=== PATIENT | male | born 1995 | race Caucasian/White ===

== ENCOUNTER 2021-12-11 07:01 | Emergency (ER) | payer OTHER, SELFPAY ==
[2021-12-11 07:07] VITALS: BP 139/91; PULSE 62; RESP 16; TEMP 36.6; O2SAT 99; BMI 21.8
--- NOTE | 2021-12-11 07:20 | CRLHL7_ITS ---
For Patients: As a result of the Century Cures Act, medical imaging exams and procedure reports are released immediately into your electronic medical record. You may view this report before your referring provider. If you have questions, please contact your health care provider. Indication: Trauma Technique: Three views left wrist Comparison: None Findings: There is a displaced and mildly comminuted intra-articular fracture of the distal radial metaphysis. Soft tissue swelling. Carpal bones maintain. Impression: Intra-articular distal radial fracture. Dictated by Celso Napier MD @ 12/11/2021 8:13:52 AM (Electronically Signed)
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
== END 2021-12-11 08:31 | disposition home or self-care (01) ==
PROVIDERS: Emergency Provider Family Medicine
DX: S52.502A Unspecified fracture of the lower end of left radius, initial encounter for closed fracture (principal); V19.3XXA Pedal cyclist (driver) (passenger) injured in unspecified nontraffic accident, initial encounter
CPT/HCPCS: 29125; 73110; 99283

== ENCOUNTER 2021-12-15 10:12 | Outpatient (CLI) | payer OTHER, SELFPAY ==
[2021-12-15 10:24] LABS: Hemoglobin* 14.5 gm/dL (13.5-17.5)
[2021-12-15 12:24] LABS: Chloride* 104 mmol/L (96-114); Potassium* 3.9 mmol/L (3.6-5.1); Sodium* 141 mmol/L (135-149)
[2021-12-15 12:27] LABS: Carbon Dioxide* 27 mmol/L (20-32); Creatinine* 0.7 mg/dL (0.5-1.5); Estimated Glomerular Filt Rate 130 ml/min
[2021-12-15 12:28] LABS: Blood Urea Nitrogen* 16 mg/dL (5-24); Calcium* 9.2 mg/dL (8.4-10.6); Glucose* 70 mg/dL (60-115)
== END 2021-12-15 10:13 | disposition home or self-care (01) ==
LOC: FRMREF 10:14
PROVIDERS: Visit Provider Nurse Practitioner Family
DX: Z01.818 Encounter for other preprocedural examination (principal)
CPT/HCPCS: 80048; 85018

== ENCOUNTER 2021-12-20 06:33 | Day surgery (SDC) | payer OTHER, SELFPAY ==
[2021-12-20] VITALS (10 sets, daily range): BP systolic 110–135; BP diastolic 63–96; PULSE 38–56; RESP 14–16; TEMP 36.1–36.6; O2SAT 99–100; BMI 21.3
[2021-12-20] MEDS: SODIUM CHLORIDE 0.9 % (FLUSH) 10 ML SYRINGE IVF (07:16)
[2021-12-20] MEDS: LACTATED RINGERS 1000 ML 1,000 ML 100 ML IV (07:17)
--- NOTE | 2021-12-20 07:26 | SUR.PREOP ---
TIME?OUT:?0725 PT/Bryce KRUEGER RN/Ingrid ALEXANDRA CRNA/ Purvi GRANDA CRNA VERIFICATION?OF?SURGICAL?SITE,?PROCEDURE,?AND?CONSENT OBTAINED?PRIOR?TO?INVASIVE?PROCEDURE.
[2021-12-20] MEDS: fentaNYL 100 MCG/2 ML inj IVP (07:27)
[2021-12-20] MEDS: MIDAZOLAM HCL 1 MG/ML inj IVP (07:27)
--- NOTE | 2021-12-20 07:43 | W.PM.NB ---
Nerve Block Nerve Block Time Seen by Provider: 07:32 Date Seen: 12/20/21 Type of block requested by surgeon for post-operative analgesia: axillary Side: left Time out performed: Yes Verification of patient name: Yes Verification of date of : Yes Site marking: site marked Name of person performing procedure: Robles Cameron Continuous monitoring Was continuous monitoring of O2 sat, B/P, surveillance system monitor, recorded every 15 minutes?: Yes Procedure Checklist: sterile prep, needles and gloves Ultrasound guided. Images saved: Yes Medications given in 5ml increments after negative aspiration: Marcaine %: 0.25 mL: 25 Needle gauge: 22 Decadron (mg): 10 Precedex (mcg): 25 Patient tolerated procedure well: Yes Block Charges Block Charge (with Pro Fee): Axillary Nerve Use of Ultrasound Machine for Block: Yes- US Guidance/pain block
--- NOTE | 2021-12-20 08:13 | CRLHL7_ITS ---
For Patients: As a result of the Cures Act, medical imaging exams and procedure reports are released immediately into your electronic medical record. You may view this report before your referring provider. If you have questions, please contact your health care provider. Indication: LEFT WRIST ORIF Technique: Two fluoroscopic images left wrist. Fluoroscopic time 33.1 seconds. IMPRESSION: Fluoroscopic guidance for ORIF distal radial fracture. Dictated by Celso Napier MD @ 12/20/2021 10:46:44 AM (Electronically Signed)
[2021-12-20] MEDS: CEFAZOLIN 2 GM in 0.9 % SODIUM CHLORIDE Mini-bag 100 ML IVPB (08:39)
--- NOTE | 2021-12-20 09:46 | P.ORPRC_ITS ---
Procedure Note Date of procedure: 12/20/21 Procedure: PREOPERATIVE DIAGNOSES: 1. Left distal radius fracture intra-articular fracture with volar subluxation of the volar fragment POSTOPERATIVE DIAGNOSES: 1. Left distal radius fracture intra-articular fracture with volar subluxation of the volar fragment NAME OF OPERATION: 1. Left distal radius open reduction with internal fixation of intra-articular fracture (2 primary parts) SURGEON: Davie Monique MD RELATIONSHIP EXECUTIVE: Bryce Mathur PA-C - Of note, an collections assistant was critical for this case to aide in patient positioning, limb manipulation, tissue retraction, closure, and splinting. ANESTHESIA: Supraclavicular block EBL: Less than 10 mL IMPLANTS: Arthrex distal radius locking plate with 2.7mm distal locking pegs and 3.5mm proximal nonlocking screws. TOURNIQUET: 45 minutes at 250 torr. INDICATIONS: The patient is a pleasant, 26-year-old male who sustained a left wrist injury after a fall. They had difficulty with use of the extremity and deformity. Workup included xrays which revealed an unstable fracture. Given these findings, surgery was recommended to stablize the fracture. FINDINGS: Closed, intra-articular distal radius fracture with volar subluxation of the volar fragment. PROCEDURE: Following a thorough discussion of risks, benefits, and alternatives, consent was obtained and the operative extremity was marked. The patient was brought to the operating room and placed supine on the operating table. Induction of anesthesia was achieved. Appropriate time out was performed identifying proper patient, site and procedure. 2 g IV Ancef was administered within 1 hour of incision preoperatively. The left upper extremity was prepped and draped in the appropriate sterile fashion using ChloraPrep prep. The limb was exsanguinated and the tourniquet inflated. A longitudinal incision was made overlying the FCR tendon. Sharp incision through skin and subcutaneous tissue allowed identification of the FCR tendon. The superficial sheath was sharply divided, the tendon retracted ulnar ly, and the deep fascial sheath also released. The FPL was retracted ulnarly and the pronator quadratus was sharply released from the radial border of the radius and subperiosteally elevated. The fracture was encountered and cleared of interposed periosteum / fracture hematoma. A reduction was performed and the appropriate plate selected. Temporary stabilization allowed C-arm fluoroscopy to confirm proper fracture reduction and plate positioning. The oblong hole was filled with a nonlocking screw followed by multiple distal locking pegs being careful to keep these in subchondral bone and extraarticular. Finally, the remaining proximal shaft screws were drilled and placed. Fluoroscopic imaging confirmed the improved position and showed the fracture to be stable. At this stage, the wound was thoroughly irrigated with normal saline. Closure performed with 0 Vicryl for the pronator quadratus, followed by deflation of the tourniquet. All major bleeding points were cauterized. Closure was then completed with 3-0 Vicryl for the subcutaneous, and 4-0 statafix for subcuticular closure. Dressings were applied along with a volar/dorsal splint. The patient was awoken from anesthesia and transferred to PACU in stable condition. PLAN: 1. Elevate operative extremity. 2. Ice, acetominphen or ibuprofen PRN. 3. Percocet for pain as needed. 4. Follow up with PA visit in 10-16 days for wound check and splint removal.
--- NOTE | 2021-12-20 10:23 | W.ANESCHARGE ---
Anesthesia Charges Start Date/Time Anesthesia Start Date: 12/20/21 Anesthesia Start Time: 08:28 Stop Date/Time Anesthesia Stop Date: 12/20/21 Anesthesia Stop Time: 10:16 Summary Emergency: No
== END 2021-12-20 11:55 | disposition home or self-care (01) ==
PROVIDERS: Visit Provider Orthopaedic Surgery Sports Medicine
PROC: (CPT 25575; principal; 2021-12-20 08:15)
DX: S52.572A Other intraarticular fracture of lower end of left radius, initial encounter for closed fracture (principal)
CPT/HCPCS: 25608; 01830; 64417; 73100; 76000; 76942; A4580; C1713; J0690; J2250; J2704; J3010; J7120

== ENCOUNTER 2022-01-30 10:00 | Outpatient (RCR) | payer OTHER, SELFPAY ==
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
== END 2022-03-05 12:47 | disposition home or self-care (01) ==
PROVIDERS: Visit Provider Physician Assistant Surgical
DX: S52.509D Unspecified fracture of the lower end of unspecified radius, subsequent encounter for closed fracture with routine healing (principal); Z51.89 Encounter for other specified aftercare
CPT/HCPCS: 97140; 97165